=== PATIENT | male | born 1995 | race Caucasian/White ===

== ENCOUNTER 2020-05-07 13:00 | Outpatient (RCR) | payer OTHER, SELFPAY ==
--- NOTE | 2020-05-07 13:51 | MHC.PT.DC ---
[facility] [place] [facility] [place] [facility] [place] Office [address] Nallely Kaur [address] [phone] F: [phone] F: [phone] F: [phone] F: [phone] Physical Therapy Discharge Report Diagnosis: RIGHT MEDIAL MALLEOLUS FX RIGHT ANKLE INSTABILITY Date of Surgery: Date of Evaluation: 04/15/20 Date of Discharge: 05/07/20 Treatments to Date: 5 Cancellations to Date: No Shows to Date: Discharge Status: Achieved Goals Improved Function Independent with HEP Discharge Summary: PATIENT DISCHARGED WITH HEP TO MAINTAIN AND FURTHER PROGRESS STATUS. OVERALL AROM AND STRENGTH TO RIGHT ANKLE WFL. PATIENT REPORTS 0/10 PAIN AN ABLE TO RETURN TO OUTDOOR WORK WITHOUT LIMITATION. PATIENT IS PRESENT WITH NORMAL STEPPING STRATEGIES. PATIENT HAS BEEN WEARING PROPER FOOT WEAR AND MET GOALS. ANKLE MMT: 4+/5 GROSSLY, NORMAL STEPPING STRATEGIES AND NORMALIZATION OF GAIT. Electronically signed by: GAVIN GOODRICH MSPT Please sign and return to therapist. Thank you for your referral.
== END 2020-08-19 09:36 | disposition other institution (70) ==
LOC: HO.PTWFD 13:00
PROVIDERS: Visit Provider Physician Assistant
DX: S82.54XD Nondisplaced fracture of medial malleolus of right tibia, subsequent encounter for closed fracture with routine healing (principal)
CPT/HCPCS: 97110; 97112; 97116; 97530